=== PATIENT | female | born 1965 | race Caucasian/White ===

== ENCOUNTER 2018-01-28 18:07 | Inpatient (IN) | payer BC ==
[2018-01-28] MEDS ORDERED: ACETAMINOPHEN 500 MG TAB ONE (18:34)
[2018-01-28 18:58] LABS: Absolute Lymphocytes (CBC) 2.6 K/uL (0.7-4.9); Absolute Monocytes 0.7 K/uL (0.1-1.3); Absolute Neutrophil 6.4 K/uL (1.8-8.0); Basophils % 0.1 % (0-1.3); Eosinophils % 2.2 % (0-4.4); Hematocrit 39.7 % (36.0-45.0); Lymphocytes % 26.5 % (15.3-44.8); MPV 8.6 fL (7.6-11.3); Monocytes % 6.6 % (3.3-12.3); RBC Red Blood Cell Count 4.42 M/uL (3.86-4.86)
[2018-01-28 18:59] LABS: Protime INR 1.08
[2018-01-28] MEDS ORDERED: ONDANSETRON 4 MG/2 ML VIAL ONE (19:00)
[2018-01-28] MEDS ORDERED: FENTANYL CITR 100 MCG/2 ML ONE (19:00)
[2018-01-28 19:12] LABS: Albumin 3.8 g/dL (3.4-5.0); Bilirubin Direct 0.2 mg/dL (0-0.2); Bilirubin Total 0.9 mg/dL (0.2-1.0); Magnesium 1.9 mg/dL (1.8-2.4); Potassium 3.5 mmol/L (3.5-5.1); Protein, Total 8.2 g/dL (6.4-8.2); Troponin (Emerg Dept Use Only) 0.03 ng/mL (0.0-0.045)
--- NOTE | 2018-01-28 19:20 | RAD REPORT ---
EXAM DESCRIPTION: US - Extremity Venous Uni Ltd - 01/28/2018 7:13 pm CLINICAL HISTORY: Leg pain and swelling COMPARISON: None. TECHNIQUE: Real-time sonographic evaluation of the right lower extremity deep venous systems was per formed. FINDINGS: Normal compressibility, flow augmentation, phasic flow and spontaneous flow are identified in the right lower extremity common femoral, superficial femoral, popliteal and posterior tibial vei ns. No intraluminal filling defects seen. A 5 centimeter complex popliteal fossa cyst is present. No cyst rupture or hemorrhage suspected. IMPRESSION: No DVT in the right lower extremity. Large 5 centimeter popliteal fossa cyst.
--- NOTE | 2018-01-28 19:47 | RAD REPORT ---
EXAM DESCRIPTION: RAD - Chest Single View - 01/28/2018 7:40 pm CLINICAL HISTORY: Chest pain COMPARISON: April 2015 TECHNIQUE: AP portable chest image was obtained 1920 hours . FINDINGS: Lungs are clear. Heart and vasculature are normal. No measurable pleural effusion and no p neumothorax. No acute bony abnormality seen. No acute aortic findings suspected. IMPRESSION: No acute cardiopulmonary process. No significant interval change.
--- NOTE | 2018-01-28 19:47 | RAD REPORT ---
EXAM DESCRIPTION: RAD - Knee Right 3 View - 01/28/2018 7:40 pm CLINICAL HISTORY: Progressive knee pain COMPARISON: None. FINDINGS: No fracture, dislocation or periosteal reaction.Small to moderate joint effusion is presen t. No joint space narrowing. Degenerative meniscal calcifications are present. Joint capsule calcific ations are seen. No suspicious soft tissue finding. IMPRESSION: Right knee small to moderate joint effusion. Degenerative meniscal calcifications. No acute bone finding. Clinical concerns for internal derangement or occult bony injury could be further assessed with MR im aging.
[2018-01-28 20:19] LABS: Urine Blood NEGATIVE (NEG); Urine Glucose NEGATIVE (NEG); Urine Protein NEGATIVE (NEG)
--- NOTE | 2018-01-28 21:26 | ER ---
Nurse's Notes [facility] Name: Padmini Corbett Age: 52 yrs Sex: Female : 1965 Arrival Date: 01/28/2018 Time: 18:11 Bed 6 Private MD: Zac Alfaro Diagnosis: Effusion, right knee;Synovial cyst of popliteal space [Acosta], right knee-5 cm;Fever, unspecified;Cough Presentation: 01/28 18:18 Presenting complaint: Patient states: pain to R knee for the past two weeks, the past ch day it has gotten very painful, and swollen all around. Dr. Alfaro said it probably wasn't a blood clot because it was hard, but now that it is swelling I should come in. as well I just dont feel well. Transition of care: patient was not received from another setting of care. Onset of symptoms was January 14, 2018. Risk Assessment: Do you want to hurt yourself or someone else? Patient reports no desire to harm self or others. Initial Sepsis Screen: Does the patient meet any 2 criteria? Temp <36.0*C (96.8*F)) or > 38.3*C (100.9*F). HR > 90 bpm. Yes Does the patient have a suspected source of infection? Yes: Other: possible joint infection. Care prior to arrival: None. 18:18 Method Of Arrival: Wheelchair 18:18 Acuity: JABARI 2 Triage Assessment: 18:20 General: Appears in no apparent distress. comfortable, Behavior is calm, cooperative, ch appropriate for age. Pain: Complains of pain in right knee. 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 - Social history:: Smoking status: Patient/guardian denies using tobacco. - Ebola Screening: : Patient negative for fever greater than or equal to 101.5 degrees Fahrenheit, and additional compatible Ebola Virus Disease symptoms Patient denies exposure to infectious person Patient denies travel to an Ebola-affected area in the 21 days before illness onset No symptoms or risks identified at this time. - Family history:: not pertinent. Screenin:30 Abuse screen: Denies threats or abuse. Nutritional screening: No deficits noted. aa5 Tuberculosis screening: No symptoms or risk factors identified. Fall Risk None identified. Assessment: 18:30 General: Appears uncomfortable, Behavior is calm, cooperative. Pain: Complains of pain aa5 in posterior aspect of right knee Pain currently is 8 out of 10 on a pain scale. Quality of pain is described as sharp, tender, Pain began 2 weeks ago Is continuous, Aggravated by increased activity, repositioning. Neuro: Level of Consciousness is awake, alert, obeys commands, Oriented to person, place, time, situation. Cardiovascular: Heart tones S1 S2 present Rhythm is regular. Respiratory: Airway is patent Respiratory effort is even, unlabored, Respiratory pattern is regular, symmetrical, Breath sounds are clear bilaterally. GI: Abdomen is round non-distended, Bowel sounds present X 4 quads. Abd is soft and non tender X 4 quads. : No signs and/or symptoms were reported regarding the genitourinary system. EENT: No signs and/or symptoms were reported regarding the EENT system. Derm: Skin is dry, Skin is normal, Skin temperature is hot. Musculoskeletal: Swelling present in posterior aspect of right knee and anterior aspect of right knee. Pt denies any injury to right knee. 22:15 Reassessment: Patient appears in no apparent distress at this time. No changes from jd3 previously documented assessment. Patient and/or family updated on plan of care and expected duration. Pain level reassessed. Patient is alert, oriented x 3, equal unlabored respirations, skin warm/dry/pink. 23:33 Reassessment: Patient appears in no apparent distress at this time. No changes from jd3 previously documented assessment. Patient and/or family updated on plan of care and expected duration. Pain level reassessed. Patient is alert, oriented x 3, equal unlabored respirations, skin warm/dry/pink. Vital Signs: 18:20 BP 168 / 105; Pulse 110; Resp 20; Temp 102.6(O); Pulse Ox 99% on R/A; Weight 83.46 kg; ch Height 5 ft. 2 in. (157.48 cm); Pain 8/10; 22:15 BP 117 / 74; Pulse 72; Resp 17 S; Pulse Ox 97% on R/A; jd3 23:33 BP 120 / 65; Pulse 62; Resp 17 S; Pulse Ox 95% on R/A; jd3 18:20 Body Mass Index 33.65 (83.46 kg, 157.48 cm) ED Course: 18:11 Patient arrived in ED. sb2 18:11 Zac Alfaro MD is Private Physician. sb2 18:19 Triage completed. ch 18:20 Arm band placed on left wrist. Patient placed in an exam room, on a stretcher. ch 18:28 Javi Nelson MD is Attending Physician. kye 18:30 Patient has correct armband on for positive identification. Placed in gown. Bed in low aa5 position. Call light in reach. Side rails up X2. quality assurance monitor chassis on. Pulse ox on. NIBP on. 18:40 Adelina Yang RN is Primary Nurse. aa5 18:40 Initial lab(s) drawn, by wv, sent to lab. Inserted saline lock: 20 gauge in right aa5 antecubital area, using aseptic technique. Blood collected. 18:40 No provider procedures requiring assistance completed. aa5 19:03 EKG done, by ED staff, reviewed by Javi Nelson MD. ag 19:05 Report given to CRYS Brown. aa5 19:06 Ultrasound completed. Patient tolerated well. cy 19:06 US Extremity Venous Unilateral Ltd In Process Unspecified. EDMS 19:41 XRAY Chest (1 view) In Process Unspecified. EDMS 19:41 XRAY Knee RIGHT 3 view In Process Unspecified. EDMS 21:21 Zac Alfaro MD is Hospitalizing Provider. kye 22:59 Patient admitted, IV remains in place. jd3 Administered Medications: 18:30 Drug: Tylenol 1000 mg Route: PO; ch 23:12 Follow up: Response: No adverse reaction jd3 18:53 Drug: fentaNYL (PF) 50 mcg Route: IVP; Site: right antecubital; iw 22:10 Follow up: Response: No adverse reaction jd3 18:53 Drug: Zofran 4 mg Route: IVP; Site: right antecubital; iw 22:11 Follow up: Response: No adverse reaction jd3 22:10 Drug: Cefepime 2 grams Route: IVPB; Rate: 200 ml/hr; Infused Over: 30 mins; Site: right jd3 antecubital; 22:49 Follow up: Response: No adverse reaction; IV Status: Completed infusion jd3 22:48 Drug: vancoMYCIN 1 grams Route: IVPB; Infused Over: 2 hrs; Site: right antecubital; jd3 23:00 Follow up: Response: No adverse reaction; IV Status: Infusion continued upon admission jd3 Outcome: 21:25 Decision to Hospitalize by Provider. kye 22:58 Admitted to Med/surg accompanied by tech, via stretcher, room 408, with chart, Report jd3 called to [place] SPANGLER 22:58 Condition: stable 22:58 Instructed on the need for admit, Demonstrated understanding of instructions. 23:38 Patient left the ED. jd3 Signatures: Dispatcher [employer] EDAlice Jean, RN Javi Browning ch, MD MD cha Williams, Irene RN Adelina Gilbert RN RN Venecia Chang Jonathon, RN RN jd3 Yong, Chheannith cy Billeau, Sheri sb2 Corrections: (The following items were deleted from the chart) 19:20 18:30 Musculoskeletal: Range of motion: intact in all extremities, aa5 aa5
--- NOTE | 2018-01-28 21:26 | EDPHYS ---
Physician Documentation [facility] Name: Padmini Corbett Age: 52 yrs Sex: Female : 1965 Arrival Date: 01/28/2018 Time: 18:11 Bed 6 Private MD: Zac Alfaro ED Physician Javi Nelson HPI: 01/28 18:44 This 52 yrs old Female presents to ER via Wheelchair with complaints of Knee kye Pain. 18:44 The patient presents with decreased range of motion, pain, swelling, tenderness. The kye complaints affect the posterior aspect of right knee and right knee. Context: The problem was sustained at an unknown site, resulted from an unknown cause, the patient can partially bear weight. Onset: The symptoms/episode began/occurred 3 day(s) ago. Modifying factors: The symptoms are alleviated by remaining still, the symptoms are aggravated by movement. Associated signs and symptoms: Pertinent positives: fever, warmth. fever and chills, right knee swollen. The patient or guardian reports cough, described as mild. Onset: The symptoms/episode began/occurred 1 week(s) ago. Severity of symptoms: At their worst the symptoms were mild, moderate, in the emergency department the symptoms are unchanged. 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 - Social history:: Smoking status: Patient/guardian denies using tobacco. - Ebola Screening: : Patient negative for fever greater than or equal to 101.5 degrees Fahrenheit, and additional compatible Ebola Virus Disease symptoms Patient denies exposure to infectious person Patient denies travel to an Ebola-affected area in the 21 days before illness onset No symptoms or risks identified at this time. - Family history:: not pertinent. ROS: 18:44 Eyes: Negative for injury, pain, redness, and discharge, ENT: Negative for injury, kye pain, and discharge, Neck: Negative for injury, pain, and swelling, Cardiovascular: Negative for chest pain, palpitations, and edema, Abdomen/GI: Negative for abdominal pain, nausea, vomiting, diarrhea, and constipation, Back: Negative for injury and pain, : Negative for injury, bleeding, discharge, and swelling, MS/Extremity: Negative for injury and deformity, Skin: Negative for injury, rash, and discoloration, Neuro: Negative for headache, weakness, numbness, tingling, and seizure, Psych: Negative for depression, anxiety, suicide ideation, homicidal ideation, and hallucinations, Allergy/Immunology: Negative for hives, rash, and allergies, Endocrine: Negative for neck swelling, polydipsia, polyuria, polyphagia, and marked weight changes, Hematologic/Lymphatic: Negative for swollen nodes, abnormal bleeding, and unusual bruising. 18:44 Constitutional: Positive for chills, fever, malaise. 18:44 Cardiovascular: Positive for palpitations. 18:44 MS/extremity: Positive for decreased range of motion, pain, swelling, tenderness, of the posterior aspect of right knee and right knee. Exam: 18:44 Head/Face: Normocephalic, atraumatic. Eyes: Pupils equal round and reactive to light, kye extra-ocular motions intact. Lids and lashes normal. Conjunctiva and sclera are non-icteric and not injected. Cornea within normal limits. Periorbital areas with no swelling, redness, or edema. ENT: Nares patent. No nasal discharge, no septal abnormalities noted. Tympanic membranes are normal and external auditory canals are clear. Oropharynx with no redness, swelling, or masses, exudates, or evidence of obstruction, uvula midline. Mucous membranes moist. Neck: Trachea midline, no thyromegaly or masses palpated, and no cervical lymphadenopathy. Supple, full range of motion without nuchal rigidity, or vertebral point tenderness. No Meningismus. Chest/axilla: Normal chest wall appearance and motion. Nontender with no deformity. No lesions are appreciated. Respiratory: Lungs have equal breath sounds bilaterally, clear to auscultation and percussion. No rales, rhonchi or wheezes noted. No increased work of breathing, no retractions or nasal flaring. Abdomen/GI: Soft, non-tender, with normal bowel sounds. No distension or tympany. No guarding or rebound. No evidence of tenderness throughout. Back: No spinal tenderness. No costovertebral tenderness. Full range of motion. Female : Normal external genitalia. Skin: Warm, dry with normal turgor. Normal color with no rashes, no lesions, and no evidence of cellulitis. Neuro: Awake and alert, GCS 15, oriented to person, place, time, and situation. Cranial nerves II-XII grossly intact. Motor strength 5/5 in all extremities. Sensory grossly intact. Cerebellar exam normal. Normal gait. Psych: Awake, alert, with orientation to person, place and time. Behavior, mood, and affect are within normal limits. 18:44 Constitutional: The patient appears febrile. 18:44 Musculoskeletal/extremity: Extremities: decreased ROM, pain, swelling, tenderness, ROM: limited active range of motion, limited passive range of motion, Circulation is intact in all extremities. Compartment Syndrome exam of affected extremity: is normal. DVT Exam: negative Homans' sign noted on exam, no appreciated bluish discoloration, no erythema, pain, swelling, tenderness, increased warmth, that is moderate, of the right leg, of the posterior aspect of right knee and right knee. Vital Signs: 18:20 BP 168 / 105; Pulse 110; Resp 20; Temp 102.6(O); Pulse Ox 99% on R/A; Weight 83.46 kg; ch Height 5 ft. 2 in. (157.48 cm); Pain 8/10; 22:15 BP 117 / 74; Pulse 72; Resp 17 S; Pulse Ox 97% on R/A; jd3 23:33 BP 120 / 65; Pulse 62; Resp 17 S; Pulse Ox 95% on R/A; jd3 18:20 Body Mass Index 33.65 (83.46 kg, 157.48 cm) Procedures: 22:06 Joint Treatment: of right knee using 18 gauge needle, Removed cloudy fluid, yellow kye fluid, Specimen sent to lab. Dressed with band aid, Neosporin, Patient tolerated well. MDM: 18:28 Patient medically screened. [facility] 18:49 Data reviewed: vital signs, nurses notes, lab test result(s), EKG, radiologic studies, [facility] doppler, plain films. 01/28 18:29 Order name: Basic Metabolic Panel; Complete Time: 21:14 01/28 18: Order name: CBC with Diff; Complete Time: 21:14 01/28 18: Order name: LFT's; Complete Time: 21:14 18 18:29 Order name: Magnesium; Complete Time: 21:14 01/28 18:29 Order name: NT PRO-BNP; Complete Time: 21:14 01/28 18:29 Order name: PT-INR; Complete Time: 21:14 18 18:29 Order name: Troponin (emerg Dept Use Only); Complete Time: 21:14 01/28 18:30 Order name: Lactate; Complete Time: 21:14 01/28 18:30 Order name: Procalcitonin; Complete Time: 21:14 01/28 18:30 Order name: Blood Culture Adult (2) 01/28 18:43 Order name: Flu; Complete Time: 21:14 [facility] 01/28 18:43 Order name: Lipase; Complete Time: 21:14 [facility] 01/28 18:43 Order name: Urine Culture [facility] 01/28 20:01 Order name: Urine Dipstick--Ancillary (enter results); Complete Time: 21:14 mo 01/28 18:29 Order name: XRAY Chest (1 view); Complete Time: 21:14 01/28 18:29 Order name: EKG; Complete Time: 18:30 01/28 18:29 Order name: Cardiac monitoring; Complete Time: 18:41 01/28 18:29 Order name: EKG - Nurse/Tech; Complete Time: 19:02 01/28 18:30 Order name: XRAY Knee RIGHT 3 view; Complete Time: 21:14 01/28 18:43 Order name: US Extremity Venous Unilateral Ltd; Complete Time: 21:14 [facility] 01/28 21:42 Order name: CONS Physician Consult [facility] 01/28 22:36 Order name: Body Fluid Cell Count [facility] 01/28 22:36 Order name: Miscellaneous Test Lab [facility] 01/28 22:36 Order name: Body Fluid Crystals [facility] 01/28 22:36 Order name: Body Fluid Culture [facility] 01/28 18:29 Order name: IV Saline Lock; Complete Time: 18:41 01/28 18:29 Order name: Labs collected and sent; Complete Time: 18:41 01/28 18:29 Order name: O2 Per Protocol; Complete Time: 18:41 01/28 18:29 Order name: O2 Sat Monitoring; Complete Time: 18:41 01/28 18:43 Order name: Urine Dipstick-Ancillary (obtain specimen); Complete Time: 21:29 [facility] Administered Medications: 18:30 Drug: Tylenol 1000 mg Route: PO; 23:12 Follow up: Response: No adverse reaction jd3 18:53 Drug: fentaNYL (PF) 50 mcg Route: IVP; Site: right antecubital; iw 22:10 Follow up: Response: No adverse reaction jd3 18:53 Drug: Zofran 4 mg Route: IVP; Site: right antecubital; iw 22:11 Follow up: Response: No adverse reaction jd3 22:10 Drug: Cefepime 2 grams Route: IVPB; Rate: 200 ml/hr; Infused Over: 30 mins; Site: right jd3 antecubital; 22:49 Follow up: Response: No adverse reaction; IV Status: Completed infusion j 22:48 Drug: vancoMYCIN 1 grams Route: IVPB; Infused Over: 2 hrs; Site: right antecubital; j 23:00 Follow up: Response: No adverse reaction; IV Status: Infusion continued upon admission j Disposition: 01/28/18 21:25 Hospitalization ordered by Zac Alfaro for Inpatient Admission. Preliminary diagnosis are Effusion, right knee, Synovial cyst of popliteal space [Acosta], right knee - 5 cm, Fever, unspecified, Cough. - Bed requested for Telemetry/MedSurg (Inpatient). - Status is Inpatient Admission. jd3 - Condition is Stable. - Problem is new. - Symptoms have improved. UTI on Admission? No Signatures: Dispatcher [employer] EDSC Alice Duval RN RN ch Lewis, Kimberly, RN RN kl Anderson, Corey, MD MD cha Williams, Irene, RN RN iw Davies, Jonathon, RN RN jd3 Corrections: (The following items were deleted from the chart) 21:26 21:25 Hospitalization Ordered by Zac Alfaro MD for Inpatient Admission. Preliminary [facility] diagnosis is Effusion, right knee; Synovial cyst of popliteal space [Acosta], right knee - 5 cm. Bed requested for Telemetry/MedSurg (Inpatient). Status is Inpatient Admission. Condition is Stable. Problem is new. Symptoms have improved. UTI on Admission? No. [facility] 21:56 21:26 01/28/2018 21:25 Hospitalization Ordered by Zac Alfaro MD for Inpatient kl Admission. Preliminary diagnosis is Effusion, right knee; Synovial cyst of popliteal space [Acosta], right knee - 5 cm; Fever, unspecified; Cough. Bed requested for Telemetry/MedSurg (Inpatient). Status is Inpatient Admission. Condition is Stable. Problem is new. Symptoms have improved. UTI on Admission? No. kye 23:38 21:56 01/28/2018 21:25 Hospitalization Ordered by Zac Alfaro MD for Inpatient jd3 Admission. Preliminary diagnosis is Effusion, right knee; Synovial cyst of popliteal space [Acosta], right knee - 5 cm; Fever, unspecified; Cough. Bed requested for Telemetry/MedSurg (Inpatient). Status is Inpatient Admission. Condition is Stable. Problem is new. Symptoms have improved. UTI on Admission? No. kl
[2018-01-28] MEDS ORDERED: LIDOCAINE 1% W/EPI 1:100,000 MDV 50 ML VIAL ONE (21:28)
[2018-01-28] MEDS ORDERED: NA CHLORIDE 0.9% 100 ML IV ONE (21:55)
[2018-01-28] MEDS ORDERED: VANCOMYCIN 1 GM/250 ML BAG ONE (21:55)
[2018-01-28] MEDS ORDERED: CEFEPIME 2 GM VIAL ONE (21:55)
[2018-01-29] MEDS ORDERED: ACETAMINOPHEN 500 MG TAB PO PRN (00:07)
[2018-01-29 00:15] LABS: Appearance VERY TURBID (CLEAR); Body Fluid Source SYNOVIAL; Color of fluid Yellow (COLORLESS)
[2018-01-29 00:32] LABS: Body Fluid WBC 46626 /mm^3
[2018-01-29] MEDS ORDERED: VANCOMYCIN 500 MG in NA CHLORIDE 0.9% 100 ML IVPB ONE (01:00)
[2018-01-29 02:02] VITALS: BMI 35.6
[2018-01-29] MEDS ORDERED: VANCOMYCIN 500 MG/VIAL ONE (02:30)
[2018-01-29] MEDS ORDERED: NA CHLORIDE 0.9% 100 ML IV ONE (02:32)
[2018-01-29] MEDS: NA CHLORIDE 0.9% 1,000 ML IV SCH ×3 (02:34→16:07)
[2018-01-29 04:25] LABS: Absolute Lymphocytes (CBC) 2.6 K/uL (0.7-4.9); Absolute Monocytes 0.5 K/uL (0.1-1.3); Absolute Neutrophil 4.7 K/uL (1.8-8.0); Basophils % 0.1 % (0-1.3); Eosinophils % 1.3 % (0-4.4); Hematocrit 35.6 % (36.0-45.0); Lymphocytes % 32.5 % (15.3-44.8); MPV 8.9 fL (7.6-11.3); Monocytes % 6.9 % (3.3-12.3); RBC Red Blood Cell Count 3.99 M/uL (3.86-4.86)
[2018-01-29 04:30] LABS: Potassium 3.6 mmol/L (3.5-5.1)
--- NOTE | 2018-01-29 07:44 | EKG ---
Test Date: 2018-01-28 Test Time: 18:48:04 Clerk Guide: MARY MEASUREMENT RESULTS: Intervals: Rate: 91 TN: 146 QRSD: 84 QT: 364 QTc: 447 [place]: P: 37 TN: 146 QRS: -20 T: 25 INTERPRETIVE STATEMENTS: Normal sinus rhythm Moderate voltage criteria for LVH, may be normal variant Borderline ECG No previous ECG available for comparison Electronically Signed On 01-29-18 07:43:23 PLOW MECHANIC by Bubba Khan
[2018-01-29] MEDS: ENOXAPARIN 40 MG/0.4 ML SQ SCH (08:38)
[2018-01-29] MEDS ORDERED: LISINOPRIL 20 MG TAB PO SCH (09:00)
[2018-01-29] MEDS ORDERED: HOME MED 1 EA UNK (Lisinopril/Hydrochlorothiazide [Zestoretic 20-25 Mg Tablet] 1 TAB) PO SCH (09:00)
[2018-01-29] MEDS ORDERED: hydroCHLOROthiazide 25 MG TAB PO SCH (09:00)
[2018-01-29] MEDS ORDERED: CEFEPIME 1 GM/VIAL IV SCH (09:00)
[2018-01-29] MEDS ORDERED: VANCOMYCIN 1GM/D5W 200 ML IV SCH (09:00)
[2018-01-29] MEDS: CEFEPIME/SWI 1gm 1 GM/10 ML SYR IV SCH ×2 (10:00→22:48)
--- NOTE | 2018-01-29 10:16 | RAD REPORT ---
EXAM DESCRIPTION: MRI - Knee Right Wo Cont - 01/29/2018 9:52 am CLINICAL HISTORY: R knee pain, swelling, acosta's cyst Pain and swelling COMPARISON: Knee Right 3 View dated 01/28/2018 FINDINGS: The medial meniscus demonstrates abnormal intermediate signal in the posterior horn contac ting the inferior articular surface, compatible with a nondisplaced tear. The lateral meniscus demons trates degenerative signal without a tear. The ACL and PCL are intact. The collateral ligaments are intact. Static patellar alignment is normal. Patellar retinacula are intact. Patellar and quadriceps tendons are normal. Chondromalacia patella involves the medial patellar facet. No fracture suspected. Osteoarthritic changes are noted particularly involving the medial compartment with chondromalacia and subchondral cyst formation. A moderate to large joint effusion is present with a large Acosta's cyst noted measuring 5.7 x 4.9 x 3 .2 cm (CC x T x AP). IMPRESSION: Large Acosta's cyst with moderate to large joint effusion noted. 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 Small nondisplaced medial meniscal tear.
[2018-01-29] MEDS: D5 0.9 NS 1,000 ML IV SCH (11:00)
[2018-01-29] MEDS ORDERED: FENTANYL CITR 100 MCG/2 ML ONE (16:34)
[2018-01-29] MEDS ORDERED: ONDANSETRON 4 MG/2 ML VIAL ONE (16:34)
[2018-01-29] MEDS ORDERED: KETOROLAC 30 MG/ML INJ ONE (16:34)
[2018-01-29] MEDS ORDERED: MIDAZOLAM HCL 2 MG/2 ML INJ ONE (16:34)
[2018-01-29] MEDS ORDERED: PROPOFOL 200 MG/20 ML VIAL IV ONE (16:34)
[2018-01-29] MEDS ORDERED: LIDOCAINE 2% MPF 5 ML VIAL ONE (16:35)
[2018-01-29] MEDS ORDERED: Ringers Lactate 1,000 ML IV ONE (17:13)
[2018-01-29] MEDS ORDERED: HYDROMORPHONE HCL 1 MG/ML INJ IV ONE ×2 (18:09→18:14)
[2018-01-29] MEDS ORDERED: HYDROMORPHONE HCL 1 MG/ML INJ ONE (18:17)
[2018-01-29] MEDS: VANCOMYCIN 1.5 GM in NA CHLORIDE 0.9% 500 ML IVPB SCH (18:40)
[2018-01-29] MEDS: ONDANSETRON 4 MG/2 ML VIAL IV PRN (19:37)
[2018-01-29] MEDS: MORPHINE 4 MG/ML SYR IV PRN (20:28)
[2018-01-29] MEDS ORDERED: VANCOMYCIN 1.5 GM in NA CHLORIDE 0.9% 500 ML IVPB SCH (23:00)
--- NOTE | 2018-01-29 23:02 | CON ---
Preoperative Diagnosis: Right knee effusion, probable septic knee. History Of Present Illness: Ms. Corbett is a 52-year-old woman, 5 foot and 2 inches, 194 pounds, comp lains of pain in her right knee. Historically, she was experiencing a slight amount of pain on , went to see Dr. Alfaro on Saturday, and by yesterday, was unable to walk. She was admitted to the [facility] room in the early hours of the morning last night. She was had an aspiration performed and fe lt some relief after aspiration. The aspiration fluid reveals no organisms, but white blood cell cou nt of 44,000 with no crystals. She has no history of gout. She has been febrile with a normal perip heral white count, but the fluid within the knee showed a profound left shift. Physical Examination: General: On exam, she is she is well developed, well nourished, alert, and oriented, complains of pa in in the knee. She reports that the effusion has recurred since her initial aspiration. Vital Signs: Her fever was up to 101.8. Laboratory Data: Her peripheral white count is 7.9. Cultures are pending. The Gram stain was negat elizabeth. She appears to have some aspect of urinary tract infection between 10,00 and 100,000 CFUs/mL. There are 3+ gram-negative rods in her urine on a clean-catch specimen. Impression: This seems likely represents a septic knee. We will proceed with an irrigation and debr idement and arthrotomy of the knee with large-bore Hemovac drains. She is being taken to the operative suite in short order. BRENDA Voice ID: [id number] Report ID: [id number]
[2018-01-30] MEDS: D5 0.9 NS 1,000 ML IV SCH (00:20)
[2018-01-30] MEDS: MORPHINE 4 MG/ML SYR IV PRN ×2 (01:07→05:31)
--- NOTE | 2018-01-30 04:24 | OP ---
Surgeon: Aydin Melchor MD Preoperative Diagnosis: Septic right knee. Postoperative Diagnosis: Septic right knee. Procedure Performed: Arthrotomy and I and D of right knee. Wire Setter: None. Anesthesia: General. Disposition: Recovery room stable. Operative Report In Detail: The patient was taken to operative suite. Placed in supine position. I nduced anesthesia. Right knee prepped and draped with exsanguination via gravity techniqu e. An incision was made just medial to the patella, taken to the retinaculum, into the joint. Copio us amount of cloudy fluid was expressed. Cultures were taken. It was irrigated with 4 L of sterile saline solution. Two large-bore Hemovac drains were placed exiting in the superior aspect of the wound. A full-thickness closure of the wound was performed followed by application of a knee immobilizer. The patient is being reversed from anesthesia and should be in the recovery room at ti me of this dictation. BRENDA Voice ID: [id number] Report ID: [id number]
--- NOTE | 2018-01-30 04:59 | HP ---
Date of Admission: 01/29/2018 Chief Complaint: Right knee swelling and pain. History Of Present Illness: This is a 52-year-old pleasant female patient who started to have some swelling and pain on the back of the right knee. This pain was very minimum. She had no fever. No fall. No injury. She came in to see me on 01/27/2018. After I examined, I was concerned about Acosta cyst of the right popliteal fossa, but the swelling did not have typical consistency of cyst as there were some areas that were of hard consistency like underlying mass or bony consistency. The patient was advised to see orthopedic surgeon on an outpatient basis. Meanwhile, yesterday she contacted office and informed us that her pain from back of the knee now has actually started to involve her anterior knee and she has started to have swelling of her knee itself. With that complaint, she was advised to come to the emergency room and when she came into emergency room, her temperature was 102 degrees Fahrenheit and the patient did not realize at home that she had fever. After she was evaluated in the ER, routine labs were done, chest x-ray. There was no definite source of infection anywhere else except we were concerned about possibility of septic arthritis and arthrocentesis was done in the emergency room and the patient was started after arthrocentesis on IV vancomycin and IV cefepime and admitted to the hospital. I saw her this morning for this hospital admission. Allergies: TO CODEINE. Review of Systems: Constitutional: As mentioned above. Musculoskeletal: As mentioned above. All other systems reviewed and negative. Past Medical History: Significant for hyperlipidemia, hypertension, impaired fasting glucose, restless legs syndrome, gastroesophageal reflux disease, mild intermittent asthma. Past Surgical History: Total hysterectomy in 2010, hernia repair, breast biopsy , cholecystectomy, , removal of bone spur from bilateral foot and removal of uterine polyps. Family History: Significant for lung cancer, hypertension, cirrhosis of liver, ovarian cancer, diabetes. Social History: Negative for smoking or alcohol use. Medications: Aspirin 81 mg p.o. daily, diclofenac 50 mg p.o. 2 times a day which was started 2 days ago, Nexium 40 mg p.o. daily, lisinopril/HCTZ 20/25 one p.o. daily, ProAir inhaler p.r.n. Physical Examination: Vital Signs: When she came into emergency room, her temperature was 102.6 degrees Fahrenheit, pulse rate 110, respiratory rate 20, blood pressure 168/105 , oxygen saturation 99%, height 5 feet 2 inches, weight 194 pounds. General: Awake, alert, oriented, not in distress. HEENT: Head atraumatic, normocephalic. Conjunctivae nonerythematous. Sclerae white. Mouth, no thrush or edema noted. Ears/Nose, no mass, lesion, discharge noted. Neck: Supple. No JVD, lymph nodes, bruit, thyromegaly noted. Lungs: Bilateral good equal air entry. Clear to auscultation. No rhonchi. No rales. Heart: Normal heart sounds, no murmur or gallop. Abdomen: Soft, bowel sounds normal. No guarding, rigidity, tenderness, mass, hepatosplenomegaly, distention, or bruit noted. Extremities: The patient has swelling of the right knee anteriorly as well as posteriorly and the right popliteal fossa has presence of Acosta cyst. Skin: No rash, ulcer, cellulitis. Lymphatics: No lymph node enlargement in neck, supraclavicular, infraclavicular region. Neuro: No focal neurological deficit. Chest: Unremarkable. External Genitalia: Deferred. Rectal: Deferred. Laboratory Data: Yesterday white count 9.9, hemoglobin 13.6, platelets 243. This morning white count 7.9, hemoglobin 12.1, platelets 192. Yesterday sodium 137, potassium 3.5, chloride 102, bicarb 31, BUN 17, creatinine 0.90, glucose 115. Liver function tests unremarkable. Procalcitonin less than 0.05. Lipase 228. This morning sodium 139, potassium 3.6, chloride 100, bicarb 30, BUN 17, creatinine 0.70, glucose 116. Urinalysis shows positive for leukocyte esterase , otherwise negative. Synovial fluid analysis from the right knee aspirate done in the emergency room yesterday: WBC count 46,626; RBC count 5908; differential 94% neutrophils. Synovial fluid culture pending. Gram stain, no organisms or WBC was reported on the gram stain. Influenza A and B test negative. Blood culture pending. Right knee x-ray shows [id number] effusion, degenerative meniscal calcification, no acute bone findings. Venous Doppler, no DVT of right lower extremity. Impression: 1. Septic arthritis, right knee. 2. Acosta cyst, right knee. 3. Hypertension. 4. Hyperlipidemia. 5. Mild intermittent asthma. 6. Impaired fasting glucose. 7. Restless legs syndrome. 8. Gastroesophageal reflux disease. Plan: Admit the patient to hospital for further evaluation and management of this problem. The patient is appropriate for inpatient and is expected to spend 2 midnights in hospital. We will go ahead and give empiric antibiotic, which are cefepime and vancomycin. Consult orthopedic surgeon, Dr. Melchor who is on-call. I did call him this morning and discussed details with him about her clinical presentation including her synovial fluid analysis and Dr. Melchor has concerns about septic arthritis so he has decided to take her to surgery for this concern and surgery will be done today. We have kept the patient n.p.o. We will give IV fluid, pain medications per order, IV antibiotics per order. Home medications will be continued per order. I will see her tomorrow for followup. Uric acid and MRI of the right knee were ordered. BRITTANY/JASPER Voice ID: [id number] [id number]
[2018-01-30] MEDS: ONDANSETRON 4 MG/2 ML VIAL IV PRN ×3 (05:49→18:01)
[2018-01-30] MEDS: HYDROMORPHONE HCL 1 MG/ML INJ IV PRN ×4 (07:52→22:33)
[2018-01-30] MEDS: ENOXAPARIN 40 MG/0.4 ML SQ SCH (09:14)
[2018-01-30] MEDS: LISINOPRIL HCTZ PO SCH (09:15)
[2018-01-30] MEDS: VANCOMYCIN 1.5 GM in NA CHLORIDE 0.9% 500 ML IVPB SCH (09:16)
[2018-01-30] MEDS: CEFEPIME/SWI 1gm 1 GM/10 ML SYR IV SCH ×2 (09:16→20:26)
[2018-01-30] MEDS: PROMETHAZINE 25 MG/ML VIAL IV PRN ×2 (14:49→22:32)
--- NOTE | 2018-01-30 16:40 | P.PN ---
Subjective Date of Service: 01/30/18 Chief Complaint: right knee pain Subjective: No new changes (pod 1 s/p wash out of right knee) Review of Systems 10-point ROS is otherwise unremarkable Physical Examination - Vital Signs Temperature: 98.4 F Blood Pressure: 142/79 Pulse: 73 Respirations: 16 Pulse Ox (%): 98 - Physical Exam General: Oriented x3 HEENT: Atraumatic, Normocephalic, PERRLA Musculoskeletal: Other (dressings intact, drain in place) - Studies Microbiology Data (last 24 hrs): 01/28/18 22:05 Body Fluid - Knee Gram Stain - Final 01/28/18 19:43 Clean Catch Urine Elwell Count - Final BETWEEN 10,000 & 100,000 CFU/ML 01/28/18 19:43 Clean Catch Urine - Final Escherichia Coli Assessment And Plan - Current Problems (Diagnosis) (1) Effusion of knee joint right Current Visit: Yes Status: Acute Plan: right knee effusion washed out pod 1, dr Melchor will pull the drains tomorrow Plan to discharge in: 48 Hours
[2018-01-31] MEDS: HYDROMORPHONE HCL 1 MG/ML INJ IV PRN ×5 (02:03→22:13)
[2018-01-31] MEDS: PROMETHAZINE 25 MG/ML VIAL IV PRN ×2 (02:03→05:30)
--- NOTE | 2018-01-31 02:25 | PN ---
Date of Progress Note: 01/30/2018 Subjective: The patient was seen this morning for followup. She had surgery done by Dr. Melchor late evening for septic arthritis of right knee. This morning, the patient was having lot of pain in her knee and morphine was not helping to control her pain. She was started on tramadol by m outh and morphine was discontinued and IV Dilaudid was started. During the course of day today, her nausea was not well controlled with Zofran, so Phenergan was added. Objective: Vital Signs: Reviewed. HEENT: Unremarkable. Lungs: Clear to auscultation. Heart: Sounds normal. Abdomen: Soft. Bowel sounds normal. No guarding, rigidity, tenderness, distention. Extremities: Right lower extremity has surgical dressing present with drain tube. Impression: 1.Septic arthritis, right knee. 2.Hypertension. Plan: We will continue current empiric antibiotic which is vancomycin and cefepime. Synovial fluid culture which was collected in the emergency room prior to starting antibiotic, result is pending. D epending on that final result, decision will be made on which particular antibiotic to use. I will s ee her tomorrow for followup. We will continue to follow with Dr. Melchor. BRITTANY/MODL Voice ID: [id number] Report ID: [id number]
[2018-01-31 03:14] LABS: Absolute Lymphocytes (CBC) 1.9 K/uL (0.7-4.9); Absolute Monocytes 0.6 K/uL (0.1-1.3); Basophils % 0.2 % (0-1.3); Eosinophils % 0.8 % (0-4.4); Hematocrit 34.8 % (36.0-45.0); Lymphocytes % 24.9 % (15.3-44.8); MPV 8.6 fL (7.6-11.3); Monocytes % 8.2 % (3.3-12.3); RBC Red Blood Cell Count 3.94 M/uL (3.86-4.86)
[2018-01-31 03:58] LABS: Magnesium 1.6 mg/dL (1.8-2.4); Potassium 3.3 mmol/L (3.5-5.1)
[2018-01-31] MEDS: VANCOMYCIN 1.5 GM in NA CHLORIDE 0.9% 500 ML IVPB SCH (05:13)
[2018-01-31] MEDS ORDERED: POTASSIUM CL SA 10 MEQ TAB PO ONE (07:41)
[2018-01-31] MEDS ORDERED: MAGNESIUM SULFATE 1 gm IVPB 1 GM/100 ML BAG IV ONE (07:42)
[2018-01-31] MEDS: LISINOPRIL HCTZ PO SCH (08:18)
[2018-01-31] MEDS: ENOXAPARIN 40 MG/0.4 ML SQ SCH (08:18)
[2018-01-31] MEDS: CEFEPIME/SWI 1gm 1 GM/10 ML SYR IV SCH ×2 (08:27→20:13)
[2018-01-31] MEDS ORDERED: MAGNESIUM HYDROXIDE 8% 30 ML PO PRN (09:11)
[2018-01-31] MEDS ORDERED: MAGNESIUM HYDROXIDE 8% 30 ML PO ONE (09:11)
--- NOTE | 2018-01-31 14:39 | P.PN ---
Subjective Date of Service: 01/31/18 Chief Complaint: right knee pain Subjective: No new changes, Tolerating diet, Ambulating, Doing well (culture s no growth at 48 hrs will f/u may need to treat emperically) Physical Examination - Vital Signs Temperature: 100.1 F Blood Pressure: 148/71 Pulse: 91 Respirations: 16 Pulse Ox (%): 95 - Studies Microbiology Data (last 24 hrs): 01/28/18 22:05 Body Fluid - Knee Gram Stain - Final
--- NOTE | 2018-01-31 17:13 | CON ---
History Of Present Illness: This is a 52-year-old female I was consulted for right-sided septic knee . The patient is on IV antibiotic at this time, feels better, but has just had surgery and her leg i s in a surgical splint. The patient denies any headache, nausea, vomiting, chest pain, abdominal brett n, constipation, or diarrhea. The patient came in with swelling in her back of her knee which temper ature went up to 102. Her white count is normal and also her procalcitonin is normal. She was given IV vancomycin and cefepime and hospitalized for further evaluation. Past Medical History: Hyperlipidemia, high blood pressure, restless legs syndrome, arthritis, gastro esophageal reflux disease. Past Surgical History: Total hysterectomy, breast biopsy, cholecystectomy. Social History: Nonsmoker and nondrinker. Family History: Cancer, hypertension, ovarian cancer, diabetes mellitus, cirrhosis of liver. Current Medications: Cefepime and vancomycin. See MARs for other medication. Allergies: CODEINE. Review of Systems: A 10-point review was performed. Physical Examination: General: This is a 52-year-old female, lying in bed, not in any acute cardiopulmonary distress. Vital Signs: Temperature 100.1, pulse 91, respirations 16, blood pressure 148/71. HEENT: Unremarkable. Neck: Supple. Lungs: Basal crackles. Heart: S1, S2. Regular. Abdomen: Soft, nontender. Bowel sounds positive. Extremities: Right leg under surgical dressing with DIVINA drain in place. Laboratory Data: Shows WBC 7.6, hemoglobin 11.8, platelets are 212. Chemistry shows sodium 137, pot assium 3.3, chloride 101, bicarb 30, BUN 0.7, glucose is 88, procalcitonin is 0.05. Micro data: E c louis in her urine, sensitive to cefepime. Assessment And Plan: Right knee septic arthritis versus bursitis status post surgical debridement lo w-grade fevers. Continue antibiotic for urinary tract infection secondary to Escherichia coli. Cont inue supportive care and wound care. We will follow the patient closely. Thank you, Dr. Alfaro and Dr. Dent, for consult. NF/MODL Voice ID: [id number] Report ID: [id number]
[2018-01-31] MEDS ORDERED: POTASSIUM 25 MEQ EFFERV TAB PO ONE (17:24)
[2018-01-31] MEDS: VANCOMYCIN 1.75 GM in NA CHLORIDE 0.9% 500 ML IVPB SCH (22:14)
[2018-02-01] MEDS ORDERED: POTASSIUM 25 MEQ EFFERV TAB PO ONE (01:10)
[2018-02-01] MEDS: HYDROMORPHONE HCL 1 MG/ML INJ IV PRN ×5 (02:13→20:01)
[2018-02-01] MEDS: TRAMADOL HCL 50 MG TAB PO PRN (03:52)
--- NOTE | 2018-02-01 06:52 | PN ---
Date of Progress Note: 01/31/2018 Subjective: The patient was seen this morning for followup. Her nausea that she had yesterday is we ll controlled with Phenergan. Her appetite is slowly improving. The pain is under good control with current pain medication. She has not had a bowel movement since she is in the hospital. Objective: Vital Signs: Reviewed. HEENT: Examination unremarkable. Lungs: Clear to auscultation. No rhonchi. No rales. Heart: Sounds normal. Abdomen: Soft. Bowel sounds normal. No guarding, rigidity, tenderness, or distention. Extremities : No leg edema. Laboratory Data: White count 7.6, hemoglobin 11.8, platelets 212, sodium 137, potassium 3.3, chlorid e 101, bicarb 30, BUN 9, creatinine 0.70, glucose 120. Her synovial fluid culture is negative so far . Urine culture growing E coli. Impression: 1.Right knee acute septic arthritis. 2.Urinary tract infection. 3.Hypertension. 4.Hypokalemia. Plan: We will continue to follow with Dr. Melchor's from Orthopedic Surgery. I have requested cons ultation from Infectious Disease specialist Dr. Medina, for right knee septic arthritis problem and h is help will be appreciated for antibiotic management. We will continue current antibiotics. The apolonia santiago is on cefepime and vancomycin. Details were discussed with hospitalist, Dr. Dent, who will take [facility]. BRITTANY/MODL Voice ID: [id number] Report ID: [id number]
[2018-02-01] MEDS: ENOXAPARIN 40 MG/0.4 ML SQ SCH (08:17)
[2018-02-01] MEDS: LISINOPRIL HCTZ PO SCH (08:17)
[2018-02-01] MEDS: CEFEPIME/SWI 1gm 1 GM/10 ML SYR IV SCH ×2 (08:19→20:01)
--- NOTE | 2018-02-01 11:15 | P.PN ---
Subjective Date of Service: 02/01/18 Chief Complaint: right knee pain Patient seen and examined at bedside with RN. Chart reviewed. Patient currently complaining of having left knee pain. Stated that while working with physical therapy yesterday she twisted her knee and thinks that she might have broken something. Patient unable to bear weight on the affected knee at that time. Right knee status post surgery has been recovering well. Review of Systems 10-point ROS is otherwise unremarkable Physical Examination - Vital Signs Temperature: 99.7 F Blood Pressure: 116/65 Pulse: 97 Respirations: 16 Pulse Ox (%): 94 - Physical Exam General: Alert, In no apparent distress, Obese HEENT: Atraumatic, PERRLA, EOMI Neck: Supple, JVD not distended Respiratory: Clear to auscultation bilaterally, Normal air movement Cardiovascular: Regular rate/rhythm, Normal S1 S2 Gastrointestinal: Normal bowel sounds, No tenderness Musculoskeletal: Other (Right knee in knee immobilizer. Left knee with limited range of motion and tenderness to touch on the lateral aspect.) Integumentary: No rashes Neurological: Normal speech, Normal tone, Normal affect Lymphatics: No axilla or inguinal lymphadenopathy - Studies Microbiology Data (last 24 hrs): 01/28/18 22:05 Body Fluid - Knee Gram Stain - Final Medications List Reviewed: Yes Assessment And Plan - Plan Impression/plan: 1.Right knee acute septic arthritis - status post surgical debridement with Orthopedics. Culture negative thus far. However significant white blood cell and neutrophils noted on the for thoracentesis. Infectious Disease consulted for recommendations of IV antibiotics. Currently on vancomycin cefepime. Will follow up with the infectious disease regarding the length and appropriate antibiotics at this time. 2.Urinary tract infection -urine culture positive for E. coli. Currently on vancomycin cefepime. Will continue that here in the hospital 3.Hypertension - stable at this time. Continue home medication 4. Left knee pain - possible ligament versus meniscus tear. Will get an x-ray at this time. Disposition: Patient is to currently continue on IV antibiotics. Patient will most likely need antibiotics for 4-6 weeks. Will follow up with infectious disease regarding the length and the appropriate antibiotics. Will also follow up with a left knee x-ray to rule out any acute abnormality. Patient to continue working with physical therapy at this time. Currently pending improvement. Discharge Plan: Home Plan to discharge in: 48 Hours - Code Status/Comfort Care Code Status Assessed: Yes Critical Care: No
--- NOTE | 2018-02-01 14:13 | RAD REPORT ---
EXAM DESCRIPTION: RAD - Knee Left 2 View - 02/01/2018 2:05 pm CLINICAL HISTORY: Left knee pain FINDINGS: No fracture or dislocation is seen. Mild to moderate medial joint space narrowing with small osteophytes. Limited two view series obtained
[2018-02-01] MEDS: ACETAMINOPHEN 325 MG TABLET PO PRN (16:19)
[2018-02-01] MEDS: VANCOMYCIN 1.75 GM in NA CHLORIDE 0.9% 500 ML IVPB SCH (16:19)
[2018-02-02] MEDS: HYDROMORPHONE HCL 1 MG/ML INJ IV PRN ×5 (00:07→23:36)
[2018-02-02 05:43] LABS: Potassium 3.7 mmol/L (3.5-5.1)
[2018-02-02] MEDS ORDERED: POTASSIUM 25 MEQ EFFERV TAB PO ONE (05:58)
[2018-02-02] MEDS: ENOXAPARIN 40 MG/0.4 ML SQ SCH (08:54)
[2018-02-02] MEDS: CEFEPIME/SWI 1gm 1 GM/10 ML SYR IV SCH ×2 (08:54→20:20)
[2018-02-02] MEDS: LISINOPRIL HCTZ PO SCH (08:55)
[2018-02-02] MEDS: VANCOMYCIN 1.75 GM in NA CHLORIDE 0.9% 500 ML IVPB SCH (10:48)
[2018-02-02] MEDS: TRAMADOL HCL 50 MG TAB PO PRN ×2 (12:34→21:39)
[2018-02-02 12:49] LABS: Absolute Lymphocytes (CBC) 1.6 K/uL (0.7-4.9); Absolute Monocytes 0.7 K/uL (0.1-1.3); Absolute Neutrophil 9.3 K/uL (1.8-8.0); Basophils % 0.2 % (0-1.3); Eosinophils % 1.9 % (0-4.4); Hematocrit 33.9 % (36.0-45.0); Lymphocytes % 13.8 % (15.3-44.8); MPV 8.8 fL (7.6-11.3); Monocytes % 6.2 % (3.3-12.3); RBC Red Blood Cell Count 3.83 M/uL (3.86-4.86)
[2018-02-02 13:10] LABS: Albumin 2.6 g/dL (3.4-5.0); Bilirubin Total 1.1 mg/dL (0.2-1.0); Potassium 3.8 mmol/L (3.5-5.1)
--- NOTE | 2018-02-02 14:12 | P.PN ---
Subjective Date of Service: 02/02/18 Chief Complaint: right knee pain Patient seen and examined at bedside with RN. Chart reviewed. No complaints to offer overnight. Left knee pain has been resolved. Working with physical therapy at this time. Review of Systems 10-point ROS is otherwise unremarkable Physical Examination - Vital Signs Temperature: 98.5 F Blood Pressure: 123/58 Pulse: 92 Respirations: 20 Pulse Ox (%): 96 - Physical Exam General: Alert, In no apparent distress HEENT: Atraumatic, PERRLA, EOMI Neck: Supple, JVD not distended Respiratory: Clear to auscultation bilaterally, Normal air movement Cardiovascular: Regular rate/rhythm, Normal S1 S2 Gastrointestinal: Normal bowel sounds, No tenderness Musculoskeletal: Other (Right knee in immobilizer) Integumentary: No rashes Neurological: Normal speech, Normal tone, Normal affect Lymphatics: No axilla or inguinal lymphadenopathy - Studies Microbiology Data (last 24 hrs): 01/28/18 22:05 Body Fluid - Knee Gram Stain - Final 01/28/18 22:05 Body Fluid - Knee Culture & Sensitivity - Final Medications List Reviewed: Yes Assessment And Plan - Plan Impression/plan: 1.Right knee acute septic arthritis - status post surgical debridement with Orthopedics. Culture negative thus far. However significant white blood cell and neutrophils noted on the thoracentesis. Infectious Disease consulted for recommendations of IV vancomycin and cefepime for total of 6 weeks. PICC line insertion ordered today. Will consult case management for arrangement of IV antibiotics at home versus placement 2.Urinary tract infection -urine culture positive for E. coli. Currently on vancomycin cefepime. Will continue that here in the hospital 3.Hypertension - stable at this time. Continue home medication 4. Left knee pain - x-rays negative at this time. Pain resolved Disposition: Patient is to currently continue on IV antibiotics. Recommendation from ID is to continue IV antibiotics for 6 weeks. PICC line is ordered today. Consulted Case management for appropriate placement versus home with IV antibiotics Patient to continue working with physical therapy at this time. Currently pending improvement. Discharge Plan: Home Plan to discharge in: Greater than 2 days - Code Status/Comfort Care Code Status Assessed: Yes Critical Care: No
--- NOTE | 2018-02-02 17:29 | RAD REPORT ---
EXAM DESCRIPTION: RAD - Chest Single View - 02/02/2018 4:58 pm CLINICAL HISTORY: PICC line placement COMPARISON: Chest Single View dated 01/28/2018; Chest Pa And Lat (2 Views) dated 05/12/2015 FINDINGS: Portable chest was obtained following placement of a left upper extremity PICC line. The c atheter tip projects over the right atrium. Consider 2 cm of retraction for optimum placement.
[2018-02-02] MEDS ORDERED: LIDOCAINE 1% MPF 5 ML VIAL ONE (18:00)
[2018-02-02] MEDS: ACETAMINOPHEN 325 MG TABLET PO PRN (23:33)
[2018-02-03] MEDS ORDERED: LIDOCAINE 1% MPF 5 ML VIAL ONE (01:35)
[2018-02-03] MEDS ORDERED: VANCOMYCIN 2 GM in NA CHLORIDE 0.9% 500 ML IVPB SCH (04:00)
[2018-02-03] MEDS: HYDROMORPHONE HCL 1 MG/ML INJ IV PRN ×5 (04:02→20:25)
[2018-02-03] MEDS: ONDANSETRON 4 MG/2 ML VIAL IV PRN (04:15)
[2018-02-03 05:47] LABS: Absolute Lymphocytes (CBC) 1.7 K/uL (0.7-4.9); Absolute Monocytes 0.7 K/uL (0.1-1.3); Absolute Neutrophil 5.2 K/uL (1.8-8.0); Basophils % 0.2 % (0-1.3); Eosinophils % 5.3 % (0-4.4); Hematocrit 31.5 % (36.0-45.0); MPV 8.9 fL (7.6-11.3); Monocytes % 8.8 % (3.3-12.3); RBC Red Blood Cell Count 3.57 M/uL (3.86-4.86)
[2018-02-03 06:03] LABS: Albumin 2.1 g/dL (3.4-5.0); Bilirubin Total 1.1 mg/dL (0.2-1.0); Potassium 3.7 mmol/L (3.5-5.1); Protein, Total 6.9 g/dL (6.4-8.2)
--- NOTE | 2018-02-03 08:09 | RAD REPORT ---
EXAM DESCRIPTION: RAD - Chest Single View - 02/03/2018 12:47 am CLINICAL HISTORY: PICC line placement A preliminary report was provided at the time of the study and reviewed prior to final report. COMPARISON: February 02 1627 hours FINDINGS: Portable chest was obtained following placement of a left upper extremity PICC line. The c atheter tip is in the right atrium.
[2018-02-03] MEDS: ENOXAPARIN 40 MG/0.4 ML SQ SCH (08:17)
[2018-02-03] MEDS: LISINOPRIL HCTZ PO SCH (08:17)
[2018-02-03] MEDS: POTASSIUM CL SA 10 MEQ TAB PO SCH (08:18)
[2018-02-03] MEDS: CEFEPIME/SWI 1gm 1 GM/10 ML SYR IV SCH (08:18)
[2018-02-03] MEDS ORDERED: CEFEPIME 2 GM VIAL IV SCH (10:00)
[2018-02-03] MEDS ORDERED: CEFEPIME/SWI 1gm 1 GM/10 ML SYR IV ONE (10:30)
--- NOTE | 2018-02-03 13:26 | P.PN ---
Subjective Date of Service: 02/03/18 Chief Complaint: right knee pain Patient seen and examined at bedside with RN. Chart reviewed. No complaints to offer overnight. Left knee pain has been resolved. Working with physical therapy at this time. Review of Systems 10-point ROS is otherwise unremarkable Physical Examination - Vital Signs Temperature: 99.0 F Blood Pressure: 143/78 Pulse: 77 Respirations: 22 Pulse Ox (%): 97 - Physical Exam General: Alert, In no apparent distress HEENT: Atraumatic, PERRLA, EOMI Neck: Supple, JVD not distended Respiratory: Clear to auscultation bilaterally, Normal air movement Cardiovascular: Regular rate/rhythm, Normal S1 S2 Gastrointestinal: Normal bowel sounds, No tenderness Musculoskeletal: No tenderness Integumentary: No rashes Neurological: Normal speech, Normal tone, Normal affect Lymphatics: No axilla or inguinal lymphadenopathy - Studies Microbiology Data (last 24 hrs): 01/28/18 18:55 Blood - Blood Aerobic Blood Culture - Final No growth in 5 days. 01/28/18 18:55 Blood - Blood Anaerobic Blood Culture - Final No growth in 5 days. 01/28/18 18:40 Blood - Blood Aerobic Blood Culture - Final No growth in 5 days. 01/28/18 18:40 Blood - Blood Anaerobic Blood Culture - Final No growth in 5 days. Medications List Reviewed: Yes Assessment And Plan - Plan Impression/plan: 1.Right knee acute septic arthritis - status post surgical debridement with Orthopedics. Culture negative thus far. However significant white blood cell and neutrophils noted on the thoracentesis. Infectious Disease consulted for recommendations of IV vancomycin and cefepime for total of 6 weeks. PICC line done. Will consult case management for arrangement of IV antibiotics at home. Pt states he does not want to go to SNF or LTAC 2.Urinary tract infection -urine culture positive for E. coli. Currently on vancomycin cefepime. Will continue that here in the hospital 3.Hypertension - stable at this time. Continue home medication 4. Left knee pain - x-rays negative at this time. Pain resolved Disposition: Patient is to currently continue on IV antibiotics. Recommendation from ID is to continue IV antibiotics for 6 weeks. PICC line done. Consulted Case management for home with IV antibiotics Patient to continue working with physical therapy at this time. Discharge Plan: Home Plan to discharge in: 72 Hours - Code Status/Comfort Care Code Status Assessed: Yes Critical Care: No
[2018-02-03] MEDS: ACETAMINOPHEN 325 MG TABLET PO PRN (20:25)
[2018-02-04] MEDS: HYDROMORPHONE HCL 1 MG/ML INJ IV PRN ×5 (01:32→20:13)
[2018-02-04] MEDS: VANCOMYCIN 2.25 GM in NA CHLORIDE 0.9% 500 ML IVPB SCH (05:09)
[2018-02-04 05:14] LABS: Absolute Lymphocytes (CBC) 1.4 K/uL (0.7-4.9); Absolute Monocytes 0.5 K/uL (0.1-1.3); Absolute Neutrophil 4.8 K/uL (1.8-8.0); Basophils % 0.4 % (0-1.3); Eosinophils % 6.9 % (0-4.4); Hematocrit 32.8 % (36.0-45.0); Lymphocytes % 19.7 % (15.3-44.8); MPV 8.7 fL (7.6-11.3); Monocytes % 7.4 % (3.3-12.3); RBC Red Blood Cell Count 3.73 M/uL (3.86-4.86)
[2018-02-04 05:31] LABS: ALT/SGPT 24 U/L (12-78); AST/SGOT 19 U/L (15-37); Albumin 2.2 g/dL (3.4-5.0); Alkaline Phosphatase 62 U/L (45-117); BUN Blood Urea Nitrogen 18 mg/dL (7-18); Bicarbonate 30 mmol/L (21-32); Bilirubin Total 0.7 mg/dL (0.2-1.0); Glucose Level 137 mg/dL (74-106); Potassium 3.9 mmol/L (3.5-5.1); Protein, Total 7.2 g/dL (6.4-8.2); Sodium Level 136 mmol/L (136-145)
[2018-02-04] MEDS ORDERED: POTASSIUM 25 MEQ EFFERV TAB PO ONE (09:00)
[2018-02-04] MEDS: LISINOPRIL HCTZ PO SCH (10:01)
[2018-02-04] MEDS: POTASSIUM CL SA 10 MEQ TAB PO SCH (10:02)
[2018-02-04] MEDS: ENOXAPARIN 40 MG/0.4 ML SQ SCH (10:02)
[2018-02-04] MEDS: CEFEPIME/SWI 2gm 2 GM/20 ML SYR IV SCH (10:03)
--- NOTE | 2018-02-04 11:39 | P.PN ---
Subjective Date of Service: 02/04/18 Chief Complaint: right knee pain Patient seen and examined at bedside with RN. Chart reviewed. C/o of having sweats on BL LE at night time. Also complains of having left knee pain. Working with physical therapy at this time. However having hard time keep the cast on and understanding the need to keep the cast on. Review of Systems 10-point ROS is otherwise unremarkable Physical Examination - Vital Signs Temperature: 97.2 F Blood Pressure: 126/65 Pulse: 73 Respirations: 16 Pulse Ox (%): 99 - Physical Exam General: Alert, In no apparent distress HEENT: Atraumatic, PERRLA, EOMI Neck: Supple, JVD not distended Respiratory: Clear to auscultation bilaterally, Normal air movement Cardiovascular: Regular rate/rhythm, Normal S1 S2 Gastrointestinal: Normal bowel sounds, No tenderness Musculoskeletal: Cast in place (on the right knee) Integumentary: No rashes Neurological: Normal speech, Normal tone, Normal affect Lymphatics: No axilla or inguinal lymphadenopathy - Studies Medications List Reviewed: Yes Assessment And Plan - Plan Impression/plan: 1.Right knee acute septic arthritis - status post surgical debridement with Orthopedics. Culture negative thus far. However significant white blood cell and neutrophils noted on the thoracentesis. Infectious Disease consulted recommendations are to do IV vancomycin and cefepime for total of 6 weeks. PICC line done. Will consult case management for arrangement of IV antibiotics at home. Pt states he does not want to go to SNF or LTAC 2.Urinary tract infection -urine culture positive for E. coli. Currently on vancomycin and cefepime. Will continue that here in the hospital 3.Hypertension - stable at this time. Continue home medication 4. Left knee pain - x-rays negative at this time. Pain resolved Disposition: Patient is to continue on IV antibiotics. Recommendation from ID is to continue IV antibiotics for 6 weeks. PICC line done. Consulted Case management for home with IV antibiotics Patient to continue working with physical therapy at this time. Educated extensively on the need for ambulation and Disease process. Discharge Plan: Home Plan to discharge in: 48 Hours - Code Status/Comfort Care Code Status Assessed: Yes Critical Care: No
[2018-02-04 20:44] VITALS: O2SAT 99
[2018-02-05] MEDS: HYDROMORPHONE HCL 1 MG/ML INJ IV PRN ×2 (00:47→04:57)
[2018-02-05 04:17] LABS: Absolute Lymphocytes (CBC) 1.4 K/uL (0.7-4.9); Absolute Monocytes 0.7 K/uL (0.1-1.3); Absolute Neutrophil 5.4 K/uL (1.8-8.0); Basophils % 0.5 % (0-1.3); Eosinophils % 6.4 % (0-4.4); Hematocrit 30.6 % (36.0-45.0); Lymphocytes % 17.5 % (15.3-44.8); MPV 8.5 fL (7.6-11.3); Monocytes % 8.3 % (3.3-12.3); RBC Red Blood Cell Count 3.48 M/uL (3.86-4.86)
[2018-02-05 04:31] LABS: ALT/SGPT 25 U/L (12-78); AST/SGOT 22 U/L (15-37); Albumin 2.1 g/dL (3.4-5.0); Alkaline Phosphatase 59 U/L (45-117); BUN Blood Urea Nitrogen 17 mg/dL (7-18); Bicarbonate 29 mmol/L (21-32); Bilirubin Total 0.6 mg/dL (0.2-1.0); Glucose Level 126 mg/dL (74-106); Magnesium 1.9 mg/dL (1.8-2.4); Potassium 3.6 mmol/L (3.5-5.1); Protein, Total 7.1 g/dL (6.4-8.2); Sodium Level 136 mmol/L (136-145)
[2018-02-05] MEDS: VANCOMYCIN 2.25 GM in NA CHLORIDE 0.9% 500 ML IVPB SCH (04:58)
[2018-02-05] MEDS: LISINOPRIL HCTZ PO SCH (09:33)
[2018-02-05] MEDS: ENOXAPARIN 40 MG/0.4 ML SQ SCH (09:34)
[2018-02-05] MEDS: POTASSIUM CL SA 10 MEQ TAB PO SCH (09:34)
[2018-02-05] MEDS: CEFEPIME/SWI 2gm 2 GM/20 ML SYR IV SCH (10:18)
--- NOTE | 2018-02-05 11:30 | P.DS ---
Admission Date: 01/29/18 Discharge Date: 02/05/18 Primary Care Provider: Dr. Alfaro(Covering for him during Holiday) Disposition: ROUTINE DISCHARGE Discharge Condition: GOOD Reason for Admission: right knee pain Consultations: Orthopedics: Dr. Melchor Infectious Disease: Dr. Medina Procedures: Knee MRI: COMPARISON: Knee Right 3 View dated 01/28/2018 FINDINGS: The medial meniscus demonstrates abnormal intermediate signal in the posterior horn contacting the inferior articular surface, compatible with a nondisplaced tear. The lateral meniscus demonstrates degenerative signal without a tear. The ACL and PCL are intact. The collateral ligaments are intact. Static patellar alignment is normal. Patellar retinacula are intact. Patellar and quadriceps tendons are normal. Chondromalacia patella involves the medial patellar facet. No fracture suspected. Osteoarthritic changes are noted particularly involving the medial compartment with chondromalacia and subchondral cyst formation. A moderate to large joint effusion is present with a large Acosta's cyst noted measuring 5.7 x 4.9 x 3.2 cm (CC x T x AP). IMPRESSION: Large Acosta's cyst with moderate to large joint effusion noted. 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 Small nondisplaced medial meniscal tear. Venous Doppler: COMPARISON: None. TECHNIQUE: Real-time sonographic evaluation of the right lower extremity deep venous systems was performed. FINDINGS: Normal compressibility, flow augmentation, phasic flow and spontaneous flow are identified in the right lower extremity common femoral, superficial femoral, popliteal and posterior tibial veins. No intraluminal filling defects seen. A 5 centimeter complex popliteal fossa cyst is present. No cyst rupture or hemorrhage suspected. IMPRESSION: No DVT in the right lower extremity. Large 5 centimeter popliteal fossa cyst. Procedure: Date: 01/29/2018 Surgeon: Aydin Melchor MD Preoperative Diagnosis: Septic right knee. Postoperative Diagnosis: Septic right knee. Procedure Performed: Arthrotomy and I and D of right knee. 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 Anesthesia: General. Medical Problem List: Right knee pain secondary to septic right knee complicated with right large Acosta cyst with moderate to large joint effusion, small nondisplaced medial meniscus tear status post arthrotomy and I/D of right knee UTI, urine culture positive for E coli Hypertension Brief History of Present Illness: 52-year-old female presented with swelling, pain to the right knee. Patient seen by a PCP prior to admission. Patient was admitted for for further evaluation. Orthopedics was also consulted. Hospital Course: Patient seen evaluated for right knee pain. Patient found to have septic right knee complicated with right large Acosta cyst with moderate to large joint effusion, small nondisplaced medial meniscus tear. Patient seen and evaluated by orthopedics. Orthopedics recommended intervention. Patient had arthrotomy and I/D of her right knee. Patient tolerated procedure well. Patient also evaluated by infectious disease. Infectious Disease recommends IV antibiotic therapy for 6 weeks. PICC line placed. Patient did not want to go to a skilled facility or long-term acute care facility to continue her care. At discharge patient will continue with IV antibiotic therapy at home. Arrangements for IV antibiotic therapy and home health has been arranged. At discharge she will continue with vancomycin 2 g IV once daily and Cefepime 2 g IV daily for 6 weeks. Patient will continue with knee immobilizer to the right knee. No dressing changes are needed at this time as per orthopedics. Recommendation to follow up with orthopedics within 1 week to follow up this hospitalization. Recommendation to follow up with PCP within 1 week to follow up this hospitalization and continue her care. Patient will need to have a vancomycin trough prior to every 3rd dose. Results are to be sent to PCP for further recommendation and adjustment of medication. Recommendation to recheck lab-BMP at least twice a week to monitor her renal function on antibiotics. Patient will continue with physical therapy. Fall precautions in place. A limited supply of tramadol 50 mg 1 pill 3 times a day as needed for pain will be provided. Patient also given diclofenac 50 mg daily to be used as needed for pain. Patient also found to have UTI. Urine culture positive for E coli. This is sensitive to antibiotics that has been arranged. Patient to continue with UTI prevention education. Patient has hypertension. This has remained stable during her stay. Patient will continue with lisinopril/hydrochlorothiazide 20/25 mg daily. Patient will also continue with aspirin 81 mg daily. Patient had a mild rash to the buttocks region. This is likely fungal in nature since the patient is on antibiotic therapy. Patient will continue with nystatin cream this can be further monitored and addressed by her PCP. Vital Signs/Physical Exam: Temp Pulse Resp BP Pulse Ox 97.6 F 79 20 129/65 97 02/05/18 08:00 02/05/18 08:00 02/05/18 08:00 02/05/18 08:00 02/05/18 08:00 General: Alert, In no apparent distress, Oriented x3, Cooperative HEENT: Atraumatic Neck: Supple Respiratory: Clear to auscultation bilaterally, Normal air movement Cardiovascular: Normal pulses, Regular rate/rhythm Gastrointestinal: Normal bowel sounds, Soft and benign, Non-distended, No masses , No rebound, No guarding Musculoskeletal: Other (Right knee immobilizer in place) Integumentary: No erythema, No warmth, No cyanosis Neurological: Normal speech, Normal strength at 5/5 x4 extr, Normal tone, Normal affect Laboratory Data at Discharge: WBC 8.0 K/uL (4.3-10.9) 02/05/18 04:10 Hgb 10.6 g/dL (12.0-15.0) L 02/05/18 04:10 Hct 30.6 % (36.0-45.0) L 02/05/18 04:10 Plt Count 274 K/uL (152-406) 02/05/18 04:10 PT 12.7 SECONDS (9.5-12.5) H 01/28/18 18:40 INR 1.08 01/28/18 18:40 Sodium 136 mmol/L (136-145) 02/05/18 04:10 Potassium 3.6 mmol/L (3.5-5.1) 02/05/18 04:10 BUN 17 mg/dL (7-18) 02/05/18 04:10 Creatinine 0.56 mg/dL (0.55-1.3) 02/05/18 04:10 Glucose 126 mg/dL (74-106) H 02/05/18 04:10 Uric Acid 5.1 mg/dL (2.6-6.0) 01/29/18 03:40 Magnesium 1.9 mg/dL (1.8-2.4) 02/05/18 04:10 Total Bilirubin 0.6 mg/dL (0.2-1.0) 02/05/18 04:10 AST 22 U/L (15-37) 02/05/18 04:10 ALT 25 U/L (12-78) 02/05/18 04:10 Alkaline Phosphatase 59 U/L (45-117) 02/05/18 04:10 Lipase 228 U/L (73-393) 01/28/18 18:40 Home Medications: Aspirin Chewable [Aspirin Chewable*] 2 tab PO DAILY 01/29/18 Diclofenac Sodium [Voltaren] 1 tab PO DAILY 01/29/18 Lisinopril/Hydrochlorothiazide [Zestoretic 20-25 mg Tablet] 1 tab PO DAILY 01/29 Cefepime [Maxipime] 2 gm IV Q24H #42 bag 02/03/18 Vancomycin/0.9 % Sod Chloride [Vanco 2 Gram/250 ml-0.9% NaCl] 2 gm IV Q24H #42 plast..bag 02/03/18 traMADol HCL [Ultram*] 50 mg PO Q6H PRN #30 tab 02/03/18 Nystatin Cream [Mycostatin 100MU/Gm Cream*] 15 appl TOP DAILY #1 tube 02/05/18 New Medications: Cefepime [Maxipime] 2 gm IV Q24H #42 bag Nystatin Cream [Mycostatin 100MU/Gm Cream*] 15 appl TOP DAILY #1 tube traMADol HCL [Ultram*] 50 mg PO Q6H PRN #30 tab PRN Reason: Pain Vancomycin/0.9 % Sod Chloride [Vanco 2 Gram/250 ml-0.9% NaCl] 2 gm IV Q24H #42 plast..bag Patient Discharge Instructions: 1. Patient will need a follow up with her PCP within 1 week to follow up this hospitalization. 2. Patient seen evaluated for right knee pain. Patient found to have septic right knee complicated with right large Acosta cyst with moderate to large joint effusion, small nondisplaced medial meniscus tear. Patient seen and evaluated by orthopedics. Orthopedics recommended intervention. Patient had arthrotomy and I/D of her right knee. Patient tolerated procedure well. Patient also evaluated by infectious disease. Infectious Disease recommends IV antibiotic therapy for 6 weeks. PICC line placed. Patient did not want to go to a skilled facility or long-term acute care facility to continue her care. At discharge patient will continue with IV antibiotic therapy at home. Arrangements for IV antibiotic therapy and home health has been arranged. At discharge she will continue with vancomycin 2 g IV once daily and Cefepime 2 g IV daily for 6 weeks. Patient will continue with knee immobilizer to the right knee. No dressing changes are needed at this time as per orthopedics. Recommendation to follow up with orthopedics within 1 week to follow up this hospitalization. Recommendation to follow up with PCP within 1 week to follow up this hospitalization and continue her care. Patient will need to have a vancomycin trough prior to every 3rd dose. Results are to be sent to PCP for further recommendation and adjustment of medication. Recommendation to recheck lab-BMP at least twice a week to monitor her renal function on antibiotics. Patient will continue with physical therapy. Fall precautions in place. A limited supply of tramadol 50 mg 1 pill 3 times a day as needed for pain will be provided. Patient also given diclofenac 50 mg daily to be used as needed for pain. 3. Patient also found to have UTI. Urine culture positive for E coli. This is sensitive to antibiotics that has been arranged. Patient to continue with UTI prevention education. 4. Patient has hypertension. This has remained stable during her stay. Patient will continue with lisinopril/hydrochlorothiazide 20/25 mg daily. Patient will also continue with aspirin 81 mg daily. 5. Patient had a mild rash to the buttocks region. This is likely fungal in nature since the patient is on antibiotic therapy. Patient will continue with nystatin cream this can be further monitored and addressed by her PCP. Diet: Regular Activity: Ad warren Followup: Zac Alfaro MD [Primary Care Provider] - 1-2 Weeks Abdi Medina MD [ACTIVE - CAN ADMIT] - 1 Week Aydin Melchor MD [ACTIVE - CAN ADMIT] - 1 Week Time spent managing pt's care (in minutes): 55
--- NOTE | 2018-02-05 12:23 | PN ---
Subjective: The patient is lying in bed. Denies any headache, nausea, vomiting, chest pain, abdomin al pain, constipation, or diarrhea. Objective: Vital Signs: Temperature 97.6, pulse 79, respirations 16, blood pressure 129/65. Lungs: Clear to auscultation. Heart: S1, S2. Regular. Abdomen: Soft. Bowel sounds present. Extremities: Right knee in the surgical wrap. Laboratory Data: Shows WBC 8000, hemoglobin 10.6, platelets are 274. Chemistry shows sodium 136, po tassium 3.6, chloride 99, bicarb 29, BUN 17, creatinine 0.5, glucose 126. Micro data: E coli in the urine. Assessment And Plan: Right knee septic arthritis. Urinary tract infection secondary to Escherichia coli. Currently being treated with cefepime and vancomycin. Continue current medications. Total co urse of 6 weeks with vancomycin and cefepime, can be stopped after 7 days. We will follow the patien t as needed. DAVID/MODL Voice ID: [id number] Report ID: [id number]
[2018-02-05 13:55] VITALS: BP 128/82; TEMP 97.8
== END 2018-02-05 15:36 | disposition home health service (06) | DRG 488 ==
LOC: ER 18:07 → OBSVTOIN 21:32 → ERHOLD 21:32 → INTOOBSV 21:32 → 4TH 23:15 → OBSVTOIN 01-29 10:40
PROVIDERS: ADMIT Internal Medicine; ATTEND Family Medicine
PROC: 0S9C3ZZ Drainage of Right Knee Joint, Percutaneous Approach (ICD-10-PCS; 2018-01-28)
PROC: 0S9C00Z Drainage of Right Knee Joint with Drainage Device, Open Approach (ICD-10-PCS; principal; 2018-01-29 17:00)
PROC: 02HV33Z Insertion of Infusion Device into Superior Vena Cava, Percutaneous Approach (ICD-10-PCS; 2018-02-02)
PROC: B548ZZA Ultrasonography of Superior Vena Cava, Guidance (ICD-10-PCS; 2018-02-02)
DX: M00.9 Pyogenic arthritis, unspecified (principal); N39.0 Urinary tract infection, site not specified; M71.21 Synovial cyst of popliteal space [Baker], right knee; M25.461 Effusion, right knee; B96.20 Unspecified Escherichia coli [E. coli] as the cause of diseases classified elsewhere; I10 Essential (primary) hypertension; E78.5 Hyperlipidemia, unspecified; G25.81 Restless legs syndrome; K21.9 Gastro-esophageal reflux disease without esophagitis; J45.20 Mild intermittent asthma, uncomplicated; E87.6 Hypokalemia; M23.221 Derangement of posterior horn of medial meniscus due to old tear or injury, right knee
CPT/HCPCS: 36415; 71045; 80048; 80053; 80076; 80202; 81003; 83605; 83690; 83735; 83880; 84132; 84145; 84484; 84550; 85025; 85610; 87040; 87070; 87075; 87077; 87086; 87088; 87186; 87205; 87804; 89050; 89060; 93005; 93971; 96365; 96375; 97116; 97163; 97530; 99285; G0378; J0692; J1170; J1650; J2250; J2405; J2550; J2704; J3010; J3370; J3475; J7030